=== PATIENT | female | born 1940 | race Caucasian/White ===

== ENCOUNTER 2022-02-15 20:34 | Emergency (ER) | payer MEDICARE, SELFPAY ==
[2022-02-15 20:37] VITALS: BP 160/84; PULSE 89; RESP 18; TEMP 36; O2SAT 97; BMI 30.1
--- NOTE | 2022-02-15 21:02 | ED.VIS.FALL ---
HPI HPI - Fall History of Present Illness Chief Complaint: Fall Detail of Chief Complaint: Follow-up with posterior scalp laceration Informant: patient and family Occured/Mechanism Occurred: Today Mechanism/Context: Yes same level fall and Yes trip Usually ambulates: Without assistance Pain/Injury Pain Location: head Current Severity: Mild Maximum Severity: Mild Narrative Narrative: 81-year-old female history of hypertension diabetes. Was seen in a local hotel. Tripped in the bathroom fell backwards hit her back of her scalp on doorstop. No LOC. No headache. No neck pain. She is on no blood thinners besides aspirin. She denies any other complaints. Tetanus is greater than 10 years ago. Tetanus will be updated. Tetanus Immunization: >10 years Prior similar symptoms: No Recent Illness/Hospitalization: No PFSH PFSH Medical History Hyperlipemia Hypertension Type 2 diabetes mellitus Home Medications aspirin 81 mg capsule 81 mg PO DAILY 02/15/22 [History Last Taken Unknown] atorvastatin 20 mg tablet 20 mg PO QHS 02/15/22 [History Last Taken Unknown] metformin 500 mg tablet 325 mg PO BID 02/15/22 [History Last Taken Unknown] venlafaxine 150 mg capsule,extended release 24 hr (Effexor XR) 450 mg PO DAILY 02/15/22 [History Last Taken Unknown] Allergy/AdvReac Type Severity Reaction Status Date / Time latex Allergy Hives Verified 02/15/22 20:47 Surgical History History of knee replacement procedure of left knee History of knee replacement procedure of right knee History of mastectomy Social History Smoking Status: Never smoker ROS ROS ED ROS Narrative Denies recent illness. No headache. No nausea or vomiting. Review of Systems ROS Unobtainable: Denies due to encephalopathy Constitutional Constitutional ED: Denies chills or fever(s) Eyes Eyes: Denies blurry vision ENT ENT ED: Denies ear pain Cardiovascular Cardiovascular: Denies chest pain Respiratory/Chest Respiratory/Chest: Denies cough or dyspnea Gastrointestinal Gastrointestinal: Denies abdominal pain Genitourinary Genitourinary ED: Denies dysuria Musculoskeletal Musculoskeletal: Denies arthralgias Integumentary Denies abscess Neurologic Neurologic: Denies headache(s) Psychiatric Psychiatric: Denies anxiety Endocrine Endocrinology: Denies polydipsia Hematologic/Lymphatic Hematologic/Lymphatic: Denies easy bleeding Allergic/Immunologic Allergic/Immunologic ED: Denies mouth swelling or tongue swelling EXAM Physical Exam Narrative Exam Narrative: 71 female no acute distress. Vital signs stable afebrile. H EENT exam pupils round reactive light expressions are intact. No facial trauma. She has about 1 inch laceration posterior scalp is vertical. Dried blood no active bleeding. No foreign body. No hematoma. C-spine nontender. Trachea midline. Normal range of motion. Back spine nontender. Lungs clear. Heart regular rhythm rate about 90 no murmur. Chest wall nontender. Ribs nontender. Abdomen soft nontender. Pelvic girdle intact. Moving all 4 extremities. Nontender. No deformity. Normal sales promotion representative strength. Normal range of motion. Neurologic exam normal. Awake and alert. Answering questions following commands. GCS of 15. Const Vital Signs: 02/15/22 20:37 02/15/22 20:40 Temperature 96.8 F L Temperature Source Temporal Pulse Rate 89 Respiratory Rate 18 Respiratory Effort Normal Respiratory Depth Normal Respiratory Pattern Normal Blood Pressure 160/84 H Blood Pressure Mean 109 Pulse Ox 97 Oxygen Delivery Method Room Air Room Air Positive well nourished and well developed; Negative for cachectic, contractures or unkempt General Appearance ED: well developed and NAD; Negative for unkempt, cachectic or contractures Nutritional Appearance: Negative for cachectic HEENT Reports normocephalic HEENT Narrative: Serious scalp laceration about 1 inch. Vertical. trauma; Negative for hematoma or tenderness Eyes PERRL and EOMs intact bilaterally General Eye ED: Negative for pale conjunctiva or scleral icterus Neck full ROM, no lymphadenopathy and supple General: Negative for tenderness Chest Wall inspection of chest normal and palpation of chest normal Resp normal respiratory effort, no retractions and clear to auscultation bilaterally Effort and Inspection: Negative for pain with movement Auscultation: Negative for rales, rhonchi or wheezes Cardio regular rate, regular rhythm, S1 normal heart sound, S2 normal heart sound and no murmurs Rate: Negative for bradycardia Rhythm: Negative for abnormal rhythm Bruits: Negative for other GI non-tender, non-distended and no masses Inspection: Negative for abdominal distention Auscultation: normoactive bowel sounds Palpation: soft; Negative for guarding Back/Spine no CVA tenderness General Back: Negative for CVA tenderness Cervical Spine: Negative for cervical spine tenderness Thoracic Spine / Upper Back: Negative for ROM limited Lumbar Spine / Lower Back: Negative for lumbar spinal tenderness Neuro oriented x3, CN's II-XII intact bilaterally, moves all extremities, no focal motor deficits and no sensory deficits noted Neuro Narrative: Awake and alert. Moving all 4 extremities. Normal sales promotion representative strength. Knows date, month and year. Knows president night states. [place] Coma Scale: document GCS findings Spontaneous Obeys Commands Oriented 15 Sensorium / Orientation: alert, oriented to person, oriented to place and oriented to time; Negative for orientation impaired, confused, lethargic or stuporous Cranial Nerves: CN normal except as noted Motor Exam: strength 5/5 throughout Psych mental status grossly normal and thought process normal Appearance: Negative for unkempt Attitude: No agitated Mood & Affect: Negative for depressed, anxious or tearful Skin Lesions: no lesions Rashes: no rashes Trauma: laceration linear; Negative for abrasion MDM MDM MDM Narrative Medical decision making narrative: 81-year-old fall. No LOC. Normal neurologic exam. Posterior scalp laceration about an inch. Tetanus updated. Repeat exam patient is doing well at 10:40 PM. Neurologic exam remains normal. Awake and alert. Stitches placed she did well. Procedures Lacerations Posterior scalp laceration:: Length: 0.98 in Depth: Sub Q Shape: Linear Prep: Shnavdeep-Clepierce Laceration repair: Irrigated, Lidocaine, Local and Skin sutures Number of Sutures/Lili: 3 Suture Information: Ethilon and 4-0 Comment: Posterior scalp laceration. Approximately an inch in length. Locally anesthetized with lidocaine. Cleaned with Shur-Clens. Washed and irrigated with saline. Explored. Closed using 3 simple erupted 4-0 Ethilon sutures. Proper hemostasis and wound closure was obtained. Patient was instructed on wound care and head injury instructions. Stitches out in 10 days. Tetanus updated. Discharge Plan Triage Chief Complaint: Fall ED Provider: Fredo Dover Dx/Rx/DC Orders Clinical Impression: Fall, Laceration of scalp, Head injury, History of diabetes mellitus Instructions: ED Head Injury (Adult), ED Laceration: All Closures Prescriptions: No Action metformin 500 mg Tablet 325 mg PO BID atorvastatin 20 mg Tablet 20 mg PO QHS venlafaxine [Effexor XR] 150 mg Capsule,Extended Release 24hr 450 mg PO DAILY aspirin 81 mg Capsule 81 mg PO DAILY Primary Care Provider: Care Physician,No Primary Referrals: Care Physician,No Primary [Primary Care Provider] - Activity Restrictions/Additional Instructions: Ice to your scalp. Tylenol for pain. Clean daily. Dry thoroughly. Stitches out in 10 days. Return if severe headache, vomiting or not acting herself. Disposition Disposition: Home, Self Care
[2022-02-15] MEDS: Lidocaine/Epi/Tetracaine 50 ML 1 APPLIC TOPICAL (21:08)
[2022-02-15] MEDS: Diphth,Pertuss(Acell),Tet Vac 0.5 ML Vial IM (21:08)
[2022-02-15] MEDS: Lidocaine 1% (20 ml mdv) 20 ML Vial 10 ML INFILT (21:12)
[2022-02-15 22:48] VITALS: PULSE 87; RESP 18; TEMP 36.2; O2SAT 100
[2022-02-15] MEDS: Acetaminophen 500 MG Tablet 1000 MG PO (22:52)
== END 2022-02-15 22:53 | disposition home or self-care (01) ==
PROVIDERS: Emergency Provider Emergency Medicine; Visit Provider Emergency Medicine
DX: S01.01XA Laceration without foreign body of scalp, initial encounter (principal); E11.9 Type 2 diabetes mellitus without complications; W01.198A Fall on same level from slipping, tripping and stumbling with subsequent striking against other object, initial encounter; E78.5 Hyperlipidemia, unspecified; I10 Essential (primary) hypertension; Z79.82 Long term (current) use of aspirin; Z79.84 Long term (current) use of oral hypoglycemic drugs; Z79.899 Other long term (current) drug therapy; Z23 Encounter for immunization
CPT/HCPCS: 12001; 90471; 90715; 99285